=== PATIENT | female | born 1980 | race Two or more races ===

== ENCOUNTER 2022-12-02 01:34 | Inpatient (IN) | payer MEDICAID, OTHER ==
[~2022-12-02] VITALS: Ht 165.1 cm; Wt 98.6 kg
[2022-12-02 02:31] LABS: Hemoglobin 9.1 g/dL (12.2-16.2)
[2022-12-02 02:42] LABS: Hematocrit 28.9 % (36.0-46.0); Mean Corpuscular Hgb Conc. 31.5 g/dL (32.0-36.0); Mean Corpuscular Volume 73.1 fL (80.0-100.0); Red Blood Cells 3.95 10^6/uL (4.0-5.20); Red Cell Distribution Width 18.2 % (11.8-14.3); White Blood Cell 10.6 10^3/uL (4.4-10.8)
[2022-12-02 02:48] LABS: Basophils % (manual) 0 (0.0-2.0); Blast Cells 0; Eosinophils % (manual) 0 (0-7); Metamyelocytes % 0; Monocytes % (manual) 0 (0-12); Promyelocytes % 0; Reactive Lymphocytes 0
[2022-12-02 03:00] LABS: Albumin 2.9 g/dL (3.4-5.0); Calcium 8.3 mg/dL (8.5-10.1)
[2022-12-02 03:04] LABS: BUN/Creatinine Ratio 20.5 (10.0-20.0); Bilirubin, Total 0.8 mg/dL (0.2-1.0); Total Protein 6.7 g/dL (6.4-8.2)
[2022-12-02 03:10] LABS: Potassium 2.9 mmol/L (3.5-5.1)
[2022-12-02] MEDS ORDERED: POTASSIUM EFFERVESENT TAB 25 MEQ PO ONE (03:15)
[2022-12-02 03:28] LABS: Band Neutrophils % (manual) 20; Lymphocytes % (manual) 5 (10.0-50.0); Myelocytes % 1
[2022-12-02 04:16] LABS: Urine Bacteria FEW /hpf (None Seen); Urine Blood 2+ /uL (Negative); Urine Mucus FEW (None Seen); Urine Specific Gravity 1.016 (1.001-1.035); Urine WBC 241 /hpf (0 - 5); Urine WBC Clumps PRESENT /hpf (None Seen)
[2022-12-02] MEDS ORDERED: SODIUM CHLORIDE 0.9% 1,000 ML IV ONE (07:45)
[2022-12-02] MEDS ORDERED: HYDROcodone-ACET 5/325MG TAB PO PRN (10:30)
[2022-12-02] MEDS ORDERED: FERROUS SULFATE 325mg EC TAB PO ONE (10:30)
[2022-12-02] MEDS ORDERED: PANTOPRAZOLE 40 MG/10 ML VIAL INJ IV ONE (10:30)
[2022-12-02] MEDS ORDERED: ONDANSETRON HCL 4 MG/2 ML VIAL IV PRN (10:30)
[2022-12-02] MEDS: SODIUM CHLORIDE 0.9% 1,000 ML IV SCH ×2 (10:30→20:38)
[2022-12-02] MEDS ORDERED: KETOROLAC TROMETH 30 MG/ML 1ML VIAL IV ONE (10:30)
[2022-12-02] MEDS ORDERED: KETOROLAC TROMETH 30 MG/ML 1ML VIAL IV PRN (10:30)
[2022-12-02 10:59] LABS: Cholesterol 94 mg/dL (< 200); HDL Cholesterol 48 mg/dL (40-59); LDL Cholesterol 48 mg/dL (< 100); Triglycerides 101 mg/dL (< 150)
[2022-12-02] MEDS: ACETAMINOPHEN 325 MG TAB PO PRN (13:10)
[2022-12-02] MEDS: FERROUS SULFATE 325mg EC TAB PO SCH (18:31)
[2022-12-02] MEDS ORDERED: VANCOMYCIN PER PHARMACY 0 MG IV SCH (20:45)
[2022-12-02] MEDS ORDERED: VANCOMYCIN 1GM/250ML 250 ML IV ONE (21:00)
[2022-12-02 23:36] VITALS: BP 96/64
[2022-12-03] MEDS: ACETAMINOPHEN 325 MG TAB PO PRN ×2 (04:14→12:05)
[2022-12-03 05:00] VITALS: BP 110/60
[2022-12-03] MEDS: SODIUM CHLORIDE 0.9% 1,000 ML IV SCH (06:30)
[2022-12-03 06:56] LABS: Basophils # (auto) 0 10 ^3/uL (0-0.2); Basophils % (auto) 0.3 % (0.0-2.0); Eosinophils # (auto) 0 10 ^3/uL (0-0.8); Mean Corpuscular Hgb Conc. 31.5 g/dL (32.0-36.0); Monocytes # (auto) 0.9 10 ^3/uL (0-1.3)
[2022-12-03 06:58] LABS: Eosinophils % (auto) 0.1 % (0.0-7.0); Hematocrit 27.1 % (36.0-46.0); Hemoglobin 8.5 g/dL (12.2-16.2); Lymphocytes # (auto) 0.7 10 ^3/uL (0.4-5.4); Lymphocytes % (auto) 4.4 % (10.0-50.0); Mean Corpuscular Hemoglobin 22.6 pg (28.0-32.0); Mean Corpuscular Volume 71.8 fL (80.0-100.0); Neutrophils # (auto) 13.8 10 ^3/uL (1.6-8.6); Neutrophils % (auto) 89.2 % (37.0-80.0); Nucleated Red Blood Cells % 0.1 %; Red Blood Cells 3.78 10^6/uL (4.0-5.20); Red Cell Distribution Width 19.1 % (11.8-14.3); White Blood Cell 15.5 10^3/uL (4.4-10.8)
[2022-12-03 07:19] LABS: Potassium 3.4 mmol/L (3.5-5.1)
[2022-12-03 07:29] LABS: Albumin 2.5 g/dL (3.4-5.0); BUN/Creatinine Ratio 21.5 (10.0-20.0); Bilirubin, Total 0.6 mg/dL (0.2-1.0); Calcium 8.1 mg/dL (8.5-10.1); Total Protein 6.2 g/dL (6.4-8.2)
[2022-12-03 09:00] VITALS: BP 96/52
[2022-12-03] MEDS ORDERED: cefTRIAXone 1GM/50ML D5W 50 ML IV SCH (09:00)
[2022-12-03] MEDS ORDERED: PANTOPRAZOLE 40 MG/10 ML VIAL INJ IV SCH (10:00)
[2022-12-03] MEDS: FERROUS SULFATE 325mg EC TAB PO SCH ×2 (10:32→18:10)
[2022-12-03 13:00] VITALS: BP 105/59
[2022-12-03] MEDS ORDERED: MORPHINE SULFATE INJ 2 MG/ml SYRG IV PRN (14:15)
[2022-12-03] MEDS ORDERED: POTASSIUM EFFERVESENT TAB 25 MEQ PO ONE (15:30)
[2022-12-03] MEDS: HYDROcodone-ACET 5/325MG TAB PO PRN (16:30)
[2022-12-03] MEDS: LACTATED RINGER'S 1,000 ML IV SCH ×2 (17:00→22:15)
[2022-12-03 22:00] VITALS: BP 105/65
[2022-12-03] MEDS: MEROPENEM 1GM IVPB 100 ML IV SCH (22:03)
[2022-12-04 05:00] VITALS: BP 120/81
[2022-12-04] MEDS: HYDROcodone-ACET 5/325MG TAB PO PRN ×2 (05:07→14:56)
[2022-12-04] MEDS: LACTATED RINGER'S 1,000 ML IV SCH ×2 (05:09→14:48)
[2022-12-04] MEDS: MEROPENEM 1GM IVPB 100 ML IV SCH ×3 (05:50→21:54)
[2022-12-04 06:18] LABS: Basophils # (auto) 0 10 ^3/uL (0-0.2); Basophils % (auto) 0.3 % (0.0-2.0); Eosinophils # (auto) 0 10 ^3/uL (0-0.8); Eosinophils % (auto) 0.1 % (0.0-7.0); Hematocrit 26.3 % (36.0-46.0)
[2022-12-04 06:21] LABS: Hemoglobin 8.3 g/dL (12.2-16.2); Lymphocytes # (auto) 1.5 10 ^3/uL (0.4-5.4); Lymphocytes % (auto) 10.8 % (10.0-50.0); Mean Corpuscular Hemoglobin 22.8 pg (28.0-32.0); Mean Corpuscular Hgb Conc. 31.7 g/dL (32.0-36.0); Mean Corpuscular Volume 71.9 fL (80.0-100.0); Monocytes # (auto) 1.1 10 ^3/uL (0-1.3); Monocytes % (auto) 8.5 % (0.0-12.0); Neutrophils # (auto) 10.8 10 ^3/uL (1.6-8.6); Neutrophils % (auto) 80.3 % (37.0-80.0); Red Blood Cells 3.65 10^6/uL (4.0-5.20); Red Cell Distribution Width 19.2 % (11.8-14.3); White Blood Cell 13.4 10^3/uL (4.4-10.8)
[2022-12-04 06:38] LABS: Potassium 3.8 mmol/L (3.5-5.1)
[2022-12-04 06:59] LABS: Albumin 2.3 g/dL (3.4-5.0); BUN/Creatinine Ratio 11.6 (10.0-20.0); Bilirubin, Total 0.7 mg/dL (0.2-1.0); Calcium 8.2 mg/dL (8.5-10.1); Total Protein 6.2 g/dL (6.4-8.2)
[2022-12-04 08:30] VITALS: BP 97/57
[2022-12-04] MEDS: PANTOPRAZOLE 40 MG TAB PO SCH (10:02)
[2022-12-04] MEDS: FERROUS SULFATE 325mg EC TAB PO SCH ×2 (10:02→18:23)
[2022-12-04 16:30] VITALS: BP 133/79
[2022-12-04 22:00] VITALS: BP 112/70
[2022-12-05] MEDS: HYDROcodone-ACET 5/325MG TAB PO PRN (01:02)
[2022-12-05] MEDS ORDERED: ASPirin 81 mg TAB PO ONE (01:15)
[2022-12-05] MEDS: LACTATED RINGER'S 1,000 ML IV SCH ×2 (02:20→15:40)
[2022-12-05 04:36] VITALS: BP 114/59
[2022-12-05] MEDS: MEROPENEM 1GM IVPB 100 ML IV SCH ×2 (05:10→14:00)
[2022-12-05 07:05] LABS: Eosinophils # (auto) 0.2 10 ^3/uL (0-0.8); Eosinophils % (auto) 1.5 % (0.0-7.0); Hemoglobin 8.5 g/dL (12.2-16.2); Lymphocytes # (auto) 1.9 10 ^3/uL (0.4-5.4); Neutrophils # (auto) 7.7 10 ^3/uL (1.6-8.6); White Blood Cell 10.6 10^3/uL (4.4-10.8)
[2022-12-05 07:08] LABS: Basophils # (auto) 0.1 10 ^3/uL (0-0.2); Basophils % (auto) 0.8 % (0.0-2.0); Hematocrit 25.7 % (36.0-46.0); Lymphocytes % (auto) 17.5 % (10.0-50.0); Mean Corpuscular Hemoglobin 23.2 pg (28.0-32.0); Mean Corpuscular Hgb Conc. 33.2 g/dL (32.0-36.0); Monocytes # (auto) 0.7 10 ^3/uL (0-1.3); Monocytes % (auto) 7.1 % (0.0-12.0); Neutrophils % (auto) 73.1 % (37.0-80.0); Red Blood Cells 3.67 10^6/uL (4.0-5.20); Red Cell Distribution Width 18.7 % (11.8-14.3)
[2022-12-05 07:32] LABS: Calcium 8.5 mg/dL (8.5-10.1); Potassium 3.9 mmol/L (3.5-5.1)
[2022-12-05 07:34] LABS: BUN/Creatinine Ratio 18.2 (10.0-20.0)
[2022-12-05 09:00] VITALS: BP 124/85
[2022-12-05] MEDS ORDERED: ASPirin 81 mg TAB PO SCH (10:00)
[2022-12-05] MEDS: PANTOPRAZOLE 40 MG TAB PO SCH (10:42)
[2022-12-05] MEDS: FERROUS SULFATE 325mg EC TAB PO SCH (10:42)
[2022-12-05] MEDS ORDERED: CEFD300C2 PO (10:43)
[2022-12-05 12:30] VITALS: BP 122/73
== END 2022-12-05 18:00 | disposition home or self-care (01) | DRG 720 ==
LOC: ER 01:34 → OVERFLOW 10:23 → WEST WING 22:22
PROVIDERS: ADMIT Nurse Practitioner Family; ATTEND Nurse Practitioner Acute Care
DX: A41.9 Sepsis, unspecified organism (principal); N30.90 Cystitis, unspecified without hematuria; B96.20 Unspecified Escherichia coli [E. coli] as the cause of diseases classified elsewhere; E66.01 Morbid (severe) obesity due to excess calories; T83.32XA Displacement of intrauterine contraceptive device, initial encounter; R65.20 Severe sepsis without septic shock; E87.6 Hypokalemia; Z20.822 Contact with and (suspected) exposure to COVID-19; D50.9 Iron deficiency anemia, unspecified; Y83.8 Other surgical procedures as the cause of abnormal reaction of the patient, or of later complication, without mention of misadventure at the time of the procedure; Z68.36 Body mass index [BMI] 36.0-36.9, adult; Y92.89 Other specified places as the place of occurrence of the external cause
CPT/HCPCS: 36415; 71045; 71250; 74176; 80048; 80053; 80061; 81001; 83036; 83605; 83690; 84132; 84443; 84484; 85007; 85025; 85027; 87040; 87077; 87086; 87186; 87426; 87804; 93005; 96361; 96365; 96375; 96376; C9113; G0378; J0696; J1885; J2185; J2405